=== PATIENT | female | born 1955 | race Hispanic/Latino ===

== ENCOUNTER 2019-01-04 21:56 | Emergency (ER) | payer OTHER ==
[2019-01-04 22:48] LABS: APPEARANCE,URINE Clear (CLEAR); BILIRUBIN,URINE Negative (NEGATIVE); COLOR,URINE Yellow (YELLOW); GLUCOSE, URINE (UA) Negative (NEGATIVE); KETONES,URINE 15 mg/dL (NEGATIVE); LEUKOCYTE ESTERASE ,URINE Trace (NEGATIVE); NITRATE,URINE Negative (NEGATIVE); OCCULT BLOOD,URINE Large (NEGATIVE); PROTEIN,URINE POS 1+ mg/dL (NEGATIVE)
[2019-01-04 23:09] LABS: BACTERIA,URINE Few /HPF (None Seen); RBC,URINE 26-50 /HPF (0-1)
[2019-01-04 23:10] LABS: YEAST,URINE BUDDING Many /HPF (None Seen)
[2019-01-04 23:16] LABS: CREATININE 0.8 mg/dL (0.5-1.5); POTASSIUM 3.5 mmol/L (3.5-5.1)
[2019-01-04 23:18] LABS: INR 1.01 (0.85-1.15); PARTIAL THROMBOPLASTIN TIME 32.4 SEC (26.3-35.5); PROTHROMBIN TIME 10.6 SEC (9.6-11.6)
[2019-01-04 23:21] LABS: ALBUMIN 3.4 g/dL (3.5-5.0); BILIRUBIN,TOTAL 0.4 mg/dL (0.2-1.0); TOTAL PROTEIN, SERUM 7.7 g/dL (6.0-8.3)
[2019-01-04] MEDS ORDERED: ACETAMINOPHEN EXTRA STRENGTH 500 MG TABLET ONE (23:22)
[2019-01-04 23:24] LABS: BASOPHILS % (AUTO) 0.3 % (0.0-5.0); EOSINOPHILS % (AUTO) 0.3 % (0.0-8.0); HEMATOCRIT 39.5 % (36-48); LYMPHOCYTES % (AUTO) 13.4 % (21.0-51.0); MEAN CORPUSCULAR HEMOGLOBIN 28.7 pg (27.0-33.0); MEAN CORPUSCULAR HGB CONC 33.2 g/dL (32.0-36.0); MEAN CORPUSCULAR VOLUME 86.5 fL (79-99); PLATELET COUNT (AUTO) 283 K/uL (130-400); RED BLOOD CELL COUNT(AUTO) 4.56 MIL/uL (4.00-5.50); RED CELL DISTRIBUTION WIDTH 13.1 % (11.0-15.5); WHITE BLOOD COUNT (AUTO) 15.4 K/uL (4.8-10.8)
[2019-01-04 23:30] LABS: CREATINE KINASE, TOTAL 59 U/L (21-232); MYOGLOBIN 21 ng/mL (10-92); TROPONIN I < 0.04 ng/mL (0.00-0.06)
[2019-01-04] MEDS ORDERED: CEFTRIAXONE SODIUM 1 GM ONE (23:44)
[2019-01-04] MEDS ORDERED: KETOROLAC TROMETHAMINE 30MG/ML ONE (23:49)
[2019-01-05] MEDS ORDERED: HYDROCODONE/ACETAMINOPHEN 5/325 MG TAB ONE (02:15)
== END 2019-01-05 02:35 | disposition home or self-care (01) ==
LOC: EDH 21:56
DX: R10.30 Lower abdominal pain, unspecified (principal); R50.9 Fever, unspecified; Z87.442 Personal history of urinary calculi
CPT/HCPCS: 36415; 71045; 74176; 76856; 80053; 81001; 82550; 83605; 83874; 84484; 85025; 85610; 85730; 87040 ×2; 87088; 93005; 96374; 99285; J0696; J1885